=== PATIENT | male | born 1965 | race Caucasian/White ===

== ENCOUNTER → 2018-09-20 | Outpatient (CLI) | payer BC ==
--- NOTE | 2018-09-20 09:36 | Diagnostic Imaging Report ---
INDICATION: Allergic rhinitis. PA and lateral views were obtained. No prior examinations are available for comparison. FINDINGS: The heart size, mediastinal configuration, and pulmonary vascularity are within normal limits. There is no pleural effusion, pneumothorax, or pneumonia. The osseous structures are unremarkable. IMPRESSION: No acute cardiopulmonary abnormality. Dictated by: Dictated on workstation # [id number]
== END ==
LOC: RAD 09:09
PROVIDERS: ATTEND Nurse Practitioner Family
DX: J45.909 Unspecified asthma, uncomplicated (principal); G47.33 Obstructive sleep apnea (adult) (pediatric)
CPT/HCPCS: 71046

== ENCOUNTER 2018-12-01 10:31 | Outpatient (CLI) | payer BC ==
[2018-12-01] MEDS ORDERED: RT-ALBUTEROL SULF 2.5 MG/3 ML PRE-MIX VIAL INH ONE (10:45)
== END 2018-12-01 13:25 | disposition home or self-care (01) ==
LOC: RT 10:31
PROVIDERS: ATTEND Nurse Practitioner Family
DX: J45.909 Unspecified asthma, uncomplicated (principal); G47.33 Obstructive sleep apnea (adult) (pediatric)
CPT/HCPCS: 94060; 94726; 94729

== ENCOUNTER → 2018-12-01 | Outpatient (CLI) | payer BC | LOC: PULM 10:25 | PROVIDERS: ATTEND Nurse Practitioner Family | DX: J45.909 Unspecified asthma, uncomplicated (principal); G47.33 Obstructive sleep apnea (adult) (pediatric); J30.2 Other seasonal allergic rhinitis ==

== ENCOUNTER → 2018-12-24 | Outpatient (CLI) | payer BC ==
--- NOTE | 2018-12-24 09:18 | Diagnostic Imaging Report ---
PROCEDURE: CT sinuses without contrast TECHNIQUE: Multiple contiguous axial images were obtained through the sinuses without the use of intravenous contrast. Coronal and sagittal reformations were then performed. Auto Exposure Controls were utilized during the CT exam to meet ALARA standards for radiation dose reduction. INDICATION: Chronic sinusitis. Sinus pressure and drainage. COMPARISON: None FINDINGS: Retained secretions are seen throughout the paranasal sinuses. There are frothy secretions in the bilateral frontal sinuses. Postsurgical changes are noted in the medial wall of the maxillary sinuses. There is occlusion of the right and narrowing of the left sphenoethmoid recess secondary to mucosal thickening and retained secretions. Both frontonasal recesses are blocked with mucosal thickening and retained secretions. There is wall thickening of the frontal and maxillary sinuses bilaterally. The mastoid air cells are well pneumatized. The bony nasal septum is slightly deviated to the left. Polyps are noted along the nasal septum and bilateral inferior turbinates. No acute facial fractures. The globes and orbits are symmetric and unremarkable. Included intracranial contents show no acute abnormalities. The included soft tissues of the head are normal in appearance. IMPRESSION: 1. Acute on chronic sinusitis, with acute components in the bilateral frontal sinuses. The bilateral frontoethmoid and sphenoethmoid recesses are either narrowed or occluded secondary to retained secretions and mucosal thickening. 2. Postsurgical changes in the medial [place] of the bilateral maxillary sinuses. 3. Slightly deviated bony nasal septum with polyps along the nasal septum and bilateral inferior turbinates. Dictated by: Dictated on workstation # [id number]
== END ==
LOC: RAD 08:31
PROVIDERS: ATTEND Otolaryngology Otolaryngology/Facial Plastic Surgery
DX: J01.10 Acute frontal sinusitis, unspecified (principal); J33.0 Polyp of nasal cavity; Z98.890 Other specified postprocedural states
CPT/HCPCS: 70486

== ENCOUNTER → 2020-10-16 | Outpatient (CLI) | payer BC | LOC: LABNPT 06:22 | PROVIDERS: ATTEND Nurse Practitioner Family | DX: Z01.89 Encounter for other specified special examinations (principal); Z20.822 Contact with and (suspected) exposure to COVID-19 | CPT/HCPCS: 87635 ==

== ENCOUNTER 2020-10-18 19:32 | Outpatient (CLI) | payer BC | END 2020-10-19 07:39 | disposition home or self-care (01) | LOC: SLEEP 19:32 | PROVIDERS: ATTEND Nurse Practitioner Family | DX: Z01.89 Encounter for other specified special examinations (principal); G47.33 Obstructive sleep apnea (adult) (pediatric); J44.9 Chronic obstructive pulmonary disease, unspecified; J30.9 Allergic rhinitis, unspecified | CPT/HCPCS: 95811 ==

== ENCOUNTER 2021-03-04 10:03 | Outpatient (RCR) | payer BC ==
[2021-01-07 11:50] VITALS: BP 156/94
[2021-02-04 10:30] VITALS: BP_SYST 151; BP_SYST 156; BP_DIAS 87; BP_DIAS 94
[2021-02-04] MEDS: BENRALIZUMAB 30 MG/ML (FASENRA) SYRINGE SQ SCH (10:54)
[~2021-03-04] VITALS: Ht 170 cm; Wt 105.0 kg
[~2021-03-04 10:03] MED LIST: BENRALIZUMAB 30 MG/ML (FASENRA) SYRINGE SQ ONE
[2021-03-04 10:15] VITALS: BP 149/99
[2021-03-04] MEDS: BENRALIZUMAB 30 MG/ML (FASENRA) SYRINGE SQ SCH (10:45)
== END 2021-03-22 | disposition home or self-care (01) ==
LOC: SDC 10:03
PROVIDERS: ATTEND Nurse Practitioner Family
DX: J45.909 Unspecified asthma, uncomplicated (principal)
CPT/HCPCS: 96372